=== PATIENT | male | born 1985 | race Hispanic/Latino ===

== ENCOUNTER → 2022-01-08 15:28 | Outpatient (CLI) | payer OTHER, SELFPAY ==
[2022-01-08 18:57] LABS: COVID19 -Nasal RAPID Negative (Negative)
== END ==
PROVIDERS: Visit Provider Surgery
DX: Z20.822 Contact with and (suspected) exposure to COVID-19 (principal); Z01.812 Encounter for preprocedural laboratory examination
CPT/HCPCS: 87635; C9803

== ENCOUNTER 2022-01-09 11:39 | Day surgery (SDC) | payer OTHER, SELFPAY ==
--- NOTE | 2022-01-09 | PATH_ITS ---
[facility] Accession Number: [id number] . 01 Material submitted: . colon - DESCENDING COLON . 01 Diagnosis: Descending Colon, Biopsy: Polypoid granulation tissue consistent with inflammatory polyp. Negative for dysplasia or malignancy. [facility] 01/11/2022 1117 Local . 01 Electronically signed: . Andreina Tinajero MD, Pathologist NPI- [id number] . 01 Gross description: . DESCENDING COLON: Received in formalin is 1 fragment(s) of cooper, soft tissue measuring 0.3 x 0.1 x 0.1 cm submitted entirely in 1 cassette(s) /[facility] 01/10/2022 2255 Local . 01 Pathologist provided ICD-10: K57.92 . 01 CPT . 513324 Specimen Comment: A courtesy copy of this report has been sent to [phone] Performed at: 01 [facility] [address] [place] [address], [place], [place] [id number] MD Cristian West MD Phone: [phone]
[2022-01-09 12:00] VITALS: BP 143/90; PULSE 73; RESP 20; TEMP 36.4; O2SAT 98; BMI 33.4
[2022-01-09] MEDS: LACTATED RINGERS 1,000 ML 42 ML IV (12:08)
--- NOTE | 2022-01-09 13:17 | PM.PREOP ---
Pre-operative Note Interval Note History & Physical reviewed/Exam performed by Physician: Yes Changes to H&P: No
--- NOTE | 2022-01-09 13:25 | PM.OP.COLON ---
Operative Date/Time/Diagnoses Date of procedure: 01/09/22 Time of procedure: 13:25 Pre-op diagnosis: diverticulitis Post-op diagnosis: same Procedure & Clinicians Study performed: colonoscopy Same procedure as scheduled: Yes Indications: Diverticulitis follow-up Surgeon: Yovany Doherty Procedure Notes Procedure in detail: Medications: Conscious sedation using 8mg IV midazolam and 150mcg IV of fentanyl The history and physical was performed/updated and the patient is ASA class is 2. The procedure was discussed in detail with the patient. Potential risks complications including infection, bleeding, missed diagnosis, perforation, need for surgery, and were explained. Their questions were answered and informed consent was obtained. Patient was brought to the procedure room and placed standard monitoring equipment. The patient's vital signs were monitored continuously throughout the entire procedure. Prior to starting time-out was performed. The patient was placed in the left lateral recumbent position. Procedural sedation was administered. Examination began with a thorough inspection of the perianal area there was no evidence of fissures, fistulae, external hemorrhoids or cutaneous malignancy. The colonoscopy scope was then placed into the anal canal and was advanced to the cecum, which was identified by the ileocecal valve, the appendiceal orifice and the confluence of the taenia. The scope was then slowly withdrawn examining colon thoroughly in all directions, irrigating it of any residual stool. FINDINGS 1. Descending colon polyp 5 mm removed with biopsy forceps 2. Sigmoid colon mild diverticulosis The patient tolerated the procedure well. They will be discharged once criteria are met. The prep was of good/excellent quality. The withdrawl time was 15 minutes. The sedation time was 25minutes. Specimen(s): other (Descending colon polyp) Complications: none Impression: Colonic polyp Diverticulosis Post-procedure Recommendations: High fiber diet and Will call with biopsy results Disposition: same day surgery
[2022-01-09] MEDS: MIDAZOLAM 5 MG/5 ML VIAL 8 MG IV (13:37)
[2022-01-09] MEDS: fentaNYL 100 MCG/2 ML INJ 150 MCG IV (13:38)
[2022-01-09 13:56] VITALS: BP 129/96; PULSE 95; RESP 19; TEMP 36.8; O2SAT 98
[2022-01-09 14:00] VITALS: BP 120/85; PULSE 84; RESP 21; O2SAT 97
[2022-01-09 14:29] VITALS: BP 138/78; PULSE 85; RESP 16; O2SAT 99
== END 2022-01-09 14:15 | disposition home or self-care (01) ==
PROVIDERS: Surgery; PCP Student in an Organized Health Care Education/Training Program; Referring Provider Surgery; Visit Provider Surgery
PROC: 0DJD8ZZ Inspection of Lower Intestinal Tract, Via Natural or Artificial Opening Endoscopic (ICD-10-PCS; CPT 45378; principal; 2022-01-09 14:15)
DX: K57.30 Diverticulosis of large intestine without perforation or abscess without bleeding (principal); G47.33 Obstructive sleep apnea (adult) (pediatric); K63.5 Polyp of colon
CPT/HCPCS: 45380; 99152; 99153; J2250; J3010

== ENCOUNTER 2023-10-21 15:15 | Outpatient (RCR) | payer OTHER, SELFPAY ==
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
--- NOTE | 2023-12-03 07:47 | PT-OP ANOTE ---
Addendum entered and electronically signed by Carol Ann Cain, PT 12/03/23 07:48: Pt has to be seen by a PT because has been >30 days since last seen by PT in clinic Original Note: No SHOW- PT called pt at 07:47, but was unable to reach pt or leave a message because pt's voicemail has not been set up.
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
== END 2023-12-13 09:47 | disposition home or self-care (01) ==
LOC: PHYS 15:15
PROVIDERS: Family Provider Student in an Organized Health Care Education/Training Program; PCP Student in an Organized Health Care Education/Training Program; Referring Provider Student in an Organized Health Care Education/Training Program; Visit Provider Student in an Organized Health Care Education/Training Program
DX: M25.561 Pain in right knee (principal); R53.1 Weakness; M25.661 Stiffness of right knee, not elsewhere classified; R27.8 Other lack of coordination
CPT/HCPCS: 97110; 97140; 97161

== ENCOUNTER → 2024-11-11 19:11 | Outpatient (CLI) | payer OTHER, SELFPAY ==
--- NOTE | 2024-11-11 19:12 | DI.MRI.S_ITS ---
PROCEDURE: MR KNEE RT WO CON INDICATIONS: PAIN TECHNIQUE: Noncontrast sagittal PD fast spin echo and T2 fast spin echo with fat saturation, sagittal 3-D FLASH with fat saturation; coronal T1 spin echo and PD fast spin echo with fat saturation, and axial PD fast spin echo with fat saturation through the knee. COMPARISON: None. FINDINGS: Image quality: Excellent. Menisci: Suggestion of subtle oblique tear involving posterior horn of medial meniscus extending to medial periphery of inferior articulating surface. The lateral meniscus is intact. Cruciate ligaments: The anterior and posterior cruciate ligaments appear intact. Medial structures: The medial collateral ligament appears mildly thickened with surrounding edema. Visualized portions of the pes anserinus tendons appear normal. No abnormal bursal fluid. Lateral structures: The lateral collateral ligament, long and short heads of the biceps femoris tendon appear intact. The popliteus tendon appears normal. Iliotibial band appears normal. Anterior structures: The quadriceps and patellar tendons appear intact. Patellar alignment is normal. Bones and cartilage: [id number] osteoarthritis and low to moderate grade chondromalacia involving lateral portion of patellofemoral compartment is seen. No fracture or dislocation. Articulating cartilage in medial and lateral femoral tibial compartments are intact. Joint space: There is small to moderate knee joint fluid. No Min's cyst. Normal appearing synovial plicae are incidentally noted. IMPRESSION: 1. [id number] osteoarthritis and moderate grade chondromalacia involving lateral portion of patellofemoral compartment. No fracture or dislocation. Small to moderate joint effusion, no loose bodies. 2. Finding is concerning for subtle oblique tear involving posterior horn of medial meniscus extending to medial periphery of inferior articulating surface. No evidence of lateral meniscal tear. 3. The cruciate ligaments are intact. Low-grade MCL sprain. Dictated by: En Torres M.D. on 11/12/2024 at 9:00 Approved by: En Torres M.D. on 11/12/2024 at 9:49
== END ==
PROVIDERS: Family Provider Student in an Organized Health Care Education/Training Program; PCP Student in an Organized Health Care Education/Training Program; Referring Provider Student in an Organized Health Care Education/Training Program; Visit Provider Student in an Organized Health Care Education/Training Program
DX: M25.561 Pain in right knee (principal); M17.11 Unilateral primary osteoarthritis, right knee; M22.41 Chondromalacia patellae, right knee; M25.461 Effusion, right knee; S83.411A Sprain of medial collateral ligament of right knee, initial encounter
CPT/HCPCS: 73721